=== PATIENT | female | born 1990 | race Caucasian/White ===

== ENCOUNTER 2020-04-15 13:03 | Emergency (ER) | payer SELFPAY ==
[2020-04-15 13:19] VITALS: BP 172/101; PULSE 88; RESP 24; TEMP 36.8; O2SAT 100; BMI 42.0
--- NOTE | 2020-04-15 13:40 | XRR_ITS ---
PROCEDURE INFORMATION: Exam: XR Right Ankle Exam date and time: 04/15/2020 2:05 PM Age: 29 years old Clinical indication: Injury or trauma; Fall; Initial encounter; Blunt trauma; Ankle; Right TECHNIQUE: Imaging protocol: XR Right ankle. Views: 3 or more views. COMPARISON: No relevant prior studies available. FINDINGS: Bones/joints: There is a comminuted fracture of the distal right fibula. There is also a fracture of the posterior malleolus. There is widening at the tibiotalar joint with the tibia displaced medially and anteriorly relative to the talus. There is widening between the distal fibula and tibia suggestive of injury to the syndesmosis. Soft tissues: There is soft tissue swelling especially along the medial malleolus. XR/XR ankle RT min 3V* [id number] IMPRESSION: There is fracture dislocation of the right ankle.
--- NOTE | 2020-04-15 13:55 | ED_ITS ---
Documented by User: KAVITA Garcia 04/16/20 07:04 HPI - Extremity Problem General: Chief complaint: Extremity Injury, Lower Stated complaint: fell/ ankle pain Time Seen by Provider: 04/15/20 13:39 History of Present Illness: HPI Narrative: She states she was skiing in her garage today and twisted her ankle on the skates and now she has pain above her right ankle MD Complaint: extremity pain and joint pain Onset (ago): minute(s) Pain Consistency: constant Location: right and lower extremity Severity scale (1-10): 5 Quality: aching Radiation: proximal Relieving factors: immobilization Exacerbating factors: range of motion Associated symptoms: Reports no associated symptoms; Deny chest pain, fever(s) or rash Review of Systems Const: Denies: fever(s), chills or body aches Eyes: Denies: change in vision or blurry vision ENMT: Denies: throat pain or nasal congestion Card: Denies: chest pain or dyspnea on exertion Resp: Denies: dyspnea, productive cough or non-productive cough GI: Denies: abdominal pain, nausea or vomiting Musc: Reports: extremity pain (Right ankle area), joint pain and joint swelling Skin/Breast: Denies: rash Neuro: Denies: headache(s) Psych: Denies: anxiety or depression Cam/Lymph: Denies: easy bruising Physical Exam Const: COMMON NORMALS: no acute distress, average body habitus and patient oriented x3 HENMT: COMMON NORMALS: normocephalic HEAD & SCALP: normal to inspection and normocephalic FACE & SINUS: normal facial exam Eye: COMMON NORMALS: conjunctivae normal GENERAL EYE: appearance normal, both eyes and all related structures CONJUNCTIVA: Yes conjunctivae normal Neck/C-Spine: COMMON NORMALS: no JVD Chest: COMMONS NORMALS: normal inspection of the chest Resp: COMMON NORMALS: normal respiratory effort and clear to auscultation bilaterally AUSCULTATION: clear to auscultation bilaterally Cardio: COMMON NORMALS: no JVD, regular rate and regular rhythm RATE: regular rate RHYTHM: regular rhythm GI: COMMON NORMALS: Normal to inspection, nondistended, normoactive bowel sounds present Extremity: RIGHT LOWER EXTREMITY: Yes foot & digits (Swelling tenderness above the right ankle to anterior aspect slightly to the lateral aspect also limited range of motion due to pain) Neuro: COMMON NORMALS: patient oriented x3 Course Vital Signs: Vital signs: Vital Signs Temperature 98 F 04/15/20 15:20 Pulse Rate 99 04/15/20 15:23 Respiratory Rate 16 04/15/20 15:23 Blood Pressure 149/93 04/15/20 15:23 Pulse Oximetry 97 04/15/20 15:23 MDM - Extremity (Nontraumatic) Lab Data: Labs: Lab Results 04/15/20 Range/Units 15:47 Nasal/Oral COVID-1 9 PCR Negative Discharge Plan Discharge Patient Disposition: Home Clinical Impression: Fracture of distal end of right fibula, Fracture dislocation of ankle Condition: Stable Prescriptions: New hydrocodone-acetaminophen 5-325 mg tablet 1 tab PO Q6H PRN (Reason: pain) Qty: 15 RF: 0 Zofran 4 mg tablet 4 mg PO Q6H PRN (Reason: nausea and vomiting) Qty: 12 RF: 0 No Action Sprintec (28) 0.25-35 mg-mcg tablet 1 tab PO DAILY RF: 0 Benadryl Allergy 25 mg Tablet 25 mg PO Q6H PRN (Reason: ALLERGIES) RF: 0 Ventolin HFA 90 mcg/actuation HFA aerosol inhaler 2 puff INHALATION Q4H PRN (Reason: UNKNOWN) RF: 0 Discharge Orders: Discharge Order (Routine); Ordered 04/15/20 Ordered By: Dilan Valdes Discharge Diet: Usual diet Discharge Activity: Limit activity as instructed Activity Restrictions/Additional Instructions: Nonweightbearing on the right ankle crutches for ambulation. 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 Exam Comprehensive Documented by User: Dilan Valdes DO 04/19/20 09:33 HPI - Extremity Problem General: Chief complaint: Extremity Injury, Lower Stated complaint: fell/ ankle pain Time Seen by Provider: 04/15/20 13:39 Procedures Orthopedic Fracture Reduction Fracture #1: Time Out Performed: Yes Side: right Fracture Reduction Location: tibia and fibula Analgesia: procedural sedation Technique: direct manipulation Post Reduction X-rays Demonstrate: anatomical reduction Post-reduction neuro exam: intact Post-reduction vascular exam: intact Splint Applied: Yes Patient Tolerated Procedure: well Procedural Sedation Indication: fracture/dislocation reduction Preparation: campus monitor applied, pulse oximeter, supplemental O2 applied, suction/airway equipment at bedside and IV secured IV Etomidate dose (mg): 10 Patient Tolerated Procedure: well Complications: none Course Vital Signs: Vital signs: Vital Signs Temperature 98 F 04/15/20 15:20 Pulse Rate 99 04/15/20 15:23 Respiratory Rate 16 04/15/20 15:23 Blood Pressure 149/93 04/15/20 15:23 Pulse Oximetry 97 04/15/20 15:23 MDM - Extremity (Nontraumatic) MDM Narrative: Medical decision making narrative: Fracture reduced without difficulty and splint applied. Patient recovered well and discharged home with crutches and the splint. Patient given pain medications. Will make referral to orthopedics for definitive care at a later date. COVID swab done while she was in the emergency room. Lab Data: Labs: Lab Results 04/15/20 Range/Units 15:47 Nasal/Oral COVID-1 9 PCR Negative Discharge Plan Discharge Patient Disposition: Home Clinical Impression: Fracture of distal end of right fibula, Fracture dislocation of ankle Condition: Stable Prescriptions: New hydrocodone-acetaminophen 5-325 mg tablet 1 tab PO Q6H PRN (Reason: pain) Qty: 15 RF: 0 Zofran 4 mg tablet 4 mg PO Q6H PRN (Reason: nausea and vomiting) Qty: 12 RF: 0 No Action Sprintec (28) 0.25-35 mg-mcg tablet 1 tab PO DAILY RF: 0 Benadryl Allergy 25 mg Tablet 25 mg PO Q6H PRN (Reason: ALLERGIES) RF: 0 Ventolin HFA 90 mcg/actuation HFA aerosol inhaler 2 puff INHALATION Q4H PRN (Reason: UNKNOWN) RF: 0 Discharge Orders: Discharge Order (Routine); Ordered 04/15/20 Ordered By: Dilan Valdes Discharge Diet: Usual diet Discharge Activity: Limit activity as instructed Activity Restrictions/Additional Instructions: Nonweightbearing on the right ankle crutches for ambulation. Case management will call with follow-up appointment with orthopedics Discharge Date/Time: 04/15/20 15:53 Coding Level of Care Code ED [employer] Drilling Machine Operator for Abe Fwd Exam Comprehensive
[2020-04-15] MEDS: sodium chloride 0.9% 1,000 ML 125 ML IV (15:07)
[2020-04-15] MEDS: ondansetron 2 mg/ML SDV 2 mL 4 MG IVP (15:07)
[2020-04-15] MEDS: morphine 4 mg/mL SDV 1 mL IVP (15:07)
[2020-04-15 15:08] VITALS: BP 147/93; PULSE 95; RESP 14; O2SAT 96
--- NOTE | 2020-04-15 15:08 | XRR_ITS ---
PROCEDURE INFORMATION: Exam: XR Right Ankle Exam date and time: 04/15/2020 3:25 PM Age: 29 years old Clinical indication: Abnormal findings; Abnormal imaging study; Right ankle; Additional info: Post reduction film TECHNIQUE: Imaging protocol: XR Right ankle. Views: 1 or 2 views. COMPARISON: CR XR ankle RT min 3V* [id number] 04/15/2020 1:59 PM FINDINGS: Bones/joints: There are fractures of the distal right fibula and also of the posterior malleolus which have improved in alignment in the interval. There has also been improvement in alignment at the tibiotalar joint. Soft tissues: There is soft tissue swelling along the medial and lateral malleolus. XR/XR ankle RT 2V [id number] IMPRESSION: Alignment of the fractures have improved in the interval.
[2020-04-15 15:17] VITALS: RESP 15; O2SAT 98
[2020-04-15] MEDS: fentaNYL 50 mcg/mL INJ 2mL 25 MCG IVP (15:17)
[2020-04-15 15:20] VITALS: BP 115/78; PULSE 70; RESP 15; TEMP 36.6; O2SAT 99
[2020-04-15 15:23] VITALS: BP 149/93; PULSE 99; RESP 16; O2SAT 97
[2020-04-16 22:37] LABS: Coronavirus Lab Test PTC Negative
--- NOTE | 2020-04-17 08:39 | PC.NURSE ---
Pt notified of negative COVID result.
--- NOTE | 2020-04-17 09:32 | DCPLANNER ---
manager analysis had message to schedule a follow up appointment for patient with ortho. manager analysis called the ortho clinic, spoke with Pat, gave clinic patients information. manager analysis was told that patients information would be printed and reviewed. Clinic will call patient with appointment information.
--- NOTE | 2020-04-18 09:38 | DCPLANNER ---
Patient has a follow up appointment for patient with ortho scheduled for Tuesday, April 18, [address] at 9:[address] Quinones. Clinic will call patient with appointment information.
--- NOTE | 2020-04-29 15:37 | DCPLANNER ---
Patient has a follow up appointment scheduled for 04.18.20 with ortho - patient did attend appointment.
== END 2020-04-15 15:53 | disposition home or self-care (01) ==
PROVIDERS: Nurse Practitioner Family; Emergency Provider Family Medicine
DX: S82.451A Displaced comminuted fracture of shaft of right fibula, initial encounter for closed fracture (principal); X50.1XXA Overexertion from prolonged static or awkward postures, initial encounter
CPT/HCPCS: 12345; 29125; 73600; 73610; 87635; 96374; 96375; 99282; 99283; E0114; J2270; J2405; J3010; J3490; J7030

== ENCOUNTER 2020-04-21 05:49 | Day surgery (SDC) | payer MEDICAID, SELFPAY ==
[2020-04-20 09:46] VITALS: BMI 45.4
[2020-04-21] VITALS (12 sets, daily range): BP systolic 90–143; BP diastolic 71–98; PULSE 86–107; RESP 16–24; TEMP 36.1–36.6; O2SAT 96–99
--- NOTE | 2020-04-21 | XR_ITS ---
WS: [id number] C-ARM RADIOGRAPHS RIGHT ANKLE; 4 IMAGES HISTORY: OR PICS COMPARISON: 04/15/2020 Intraoperative imaging during plate and screw fixation distal fibular fracture and syndesmosis screw/ button placement. Fracture in normal alignment. XR/XR ankle RT min 3V* [id number] IMPRESSION: Intraoperative fixation distal fibular fracture with syndesmosis fixation.
--- NOTE | 2020-04-21 | SCC_ITS ---
Procedure Done: Open reduction internal fixation lateral and posterior malleolus open treatment syndesmotic injury 57.6 seconds of fluoroscopic guidance, for a cumulative dose of 2.03 mGy, was provided to Dr. Quinones by the radiology department. C-arm images of the RIGHT ankle were saved for the patient's permanent record. [facility]
[2020-04-21 06:30] LABS: OR HCG Qualitative Urine Negative (Negative)
[2020-04-21] MEDS: sodium chloride 0.9% 1,000 ML 30 ML IV (06:33)
--- NOTE | 2020-04-21 06:45 | ANES.PREANE2 ---
Pre-Anesthetic Assessment Pre-Anesthetic Assessment: Height/Weight: Height 1.63 m Weight 120.202 kg Temp Pulse Resp BP Pulse Ox 97.0 F L 107 H 20 H 141/84 96 04/21/20 06:24 04/21/20 06:24 04/21/20 06:24 04/21/20 06:24 04/21/20 06:24 Preop Diagnosis: Right bimalleolar ankle fracture with syndesmotic injury Proposed Procedure: Operation Date: 04/21/20 07:00 Proposed Procedures p ORIF Ankle 79508 S82.841A(Right) - Kamaljit Quinones MD Familial anesthetic complications: none Last intake: Intake Last Liquid Date 04/20/20 Last Liquid Time 22:00 Last Solid Date 04/20/20 Last Solid Time 20:00 Social: Social History: No alcohol and No tobacco Exam: Pre-Anes Outpt Exam: alert, oriented x 3, clear to auscultation bilaterally and regular rate & rhythm Airway: Cervical ROM: WNL MP: 3 Dentition: Other (missing teeth) Pulmonary: Pulmonary: Asthma Metabolic: Metabolic: Morbid obesity Anesthetic Plan: ASA status: 2 Anesthesia: General and Regional (specify below) Risk of > 500 ml blood loss (7ml/kg in children): No Meds/Allergies Current Medications: Current Medications Generic Name Dose Route Start Last Admin Trade Name Freq PRN Reason Stop Dose Admin Sodium Chloride 1,000 mls @ 30 ml s/hr 04/21/20 06:15 04/21/20 06:33 Sodium Chloride 0.9% IV 04/22/20 06:14 30 mls/hr .Q24H NADJA Administration PFSH Anesthesia Female Reproductive History: Date of last menstrual period: 04/24/19 Data Anesthesia Other Labs: Laboratory Results - last 48 hr 04/21/20 06:11 Urine HCG, Qual Negative Cardiac Studies: No Data to Display
[2020-04-21] MEDS: midazolam 1 mg/mL INJ 2 mL 2 MG IVP (06:50)
--- NOTE | 2020-04-21 07:01 | W.PM.OPSUD ---
Surgery/Procedure H&P Update DATE OF PROCEDURE: April 21, 2020 DATE H&P PERFORMED: 04/18/20 PREOP DIAGNOSIS: Right bimalleolar ankle fracture with syndesmotic injury PLANNED PROCEDURE: Operation Date: 04/21/20 07:00 Proposed Procedures p ORIF Ankle 30451 S82.841A(Right) - Kamaljit Quinones MD
--- NOTE | 2020-04-21 07:05 | ANES.PROC ---
Anesthesia Procedures Procedure/Date: 04/21/20 Nerve Block ^: Nerve Block 1: Main Anesthesia: general anesthesia Time Out Performed: Yes Consent: requested by attending/covering physician, from patient, risks and benefits reviewed and patient agrees to proceed Nerve block location: popliteal (R) Anesthesia monitors applied: pulse oximetry, EKG, BP cuff and oxygen Nerve block position: supine Anesthetic Used: ropivicaine 0.5% and with decadron (4 mg) Amount of anesthesia used (mL): 30 Ultrasound used to: recognize landmarks Nerve Stimulator Used?: No Interscalene/Femoral BLK: 4 stimuplex 21 g needle used for position and inplane approach, visualize local anesthetic spread and no vascular puncture identified Injection: neg aspiration of heme Patient Tolerated Procedure: well Complications: none
--- NOTE | 2020-04-21 08:51 | PM.OP ---
Operative Report Date of procedure: April 21, 2020 Pre-op Diagnosis: Right bimalleolar ankle fracture with syndesmotic injury Post-op diagnosis: same Post-op Findings: The patient had a segmental fracture of her right fibula consisting of a high spiral component and a lower transverse nondisplaced component. There is a posterior malleolar fracture and lateral shift of the talus in the mortise Procedure Done: Open reduction internal fixation lateral and posterior malleolus open treatment syndesmotic injury Implants: [place] [employer] Residencess 12 hole semitubular plate, Arthrex tight rope Pathology: none sent Surgeon: Kamaljit Quinones Anesthesia: General and Nerve Block Estimated blood loss (mL): 25 Tourniquet time (min): 63 Complications: None Findings: ure of her right fibula consisting of a high spiral component and a lower transverse nondisplaced component. There is a posterior malleolar fracture and lateral shift of the talus in the mortise Condition: stable Disposition: PACU Procedure: Patient was given a regional block by anesthesia and outpatient. The patient was taken to the operating room and given 2 g of Ancef. She was given a general endotracheal anesthesia. He was prepped and draped in the lateral position with the right leg exposed. A timeout was performed. A tourniquet was inflated to 350 mmHg due to the size of her leg. A 15 cm long incision was made from the tip of the fibula proximally along the posterior edge of the fibula and dissection carried down to the fibula and lateral malleolus. Initial attention was focused to the displaced spiral fracture of the fibula. Utilizing 2 reduction clamps this was brought to length and provisionally held with a single compression screw. A 12 hole plate was then contoured to fit about the posterior lateral femur. Displaced L4 holes distal to the most distal transverse fracture line and 4 holes proximally. The plate was secured with 3 screw holes in the most distal fragment, 3 in the central fragment, and 4 screw holes in the most proximal fragment. Dissection was then carried down behind the peroneal tendons to the posterior malleolus. With the foot in a dorsiflexed position and gravity reducing the ankle medially a partially-threaded cannulated cancellous screw and washer were placed reducing the small posterior malleolar fragment. The C-arm was then rotated obtain a mortise view. Through the second most distal screw guidepin and a cannulated reamer for the Arthrex tight rope were passed. The tight rope was passed without difficulty and secured laterally. Preoperative imaging showed the talus aligned in the mortise in anatomic reduction of the fractures about the ankle. The wound was irrigated saline. Deep tissues were closed with 0 Vicryl, subcutaneous tissues with 2-0 Vicryl, the skin with skin sabino. Sterile dressings were applied. The patient was extubated and taken to recovery in stable condition in a postop boot.
--- NOTE | 2020-04-21 09:01 | SUR.PHASEI ---
0856 PT TO PACU SLEEPY OPENS EYES TO VOICE BUT DOES NOT AWAKE, VSS, DRESSING TO RT ANKLE D/I BOOT IN PLACE DISTAL TOES PINK WARM CAP REFILL LESS THAN 3 SECONDS. 0905 PT AWAKE ON RA NOW, PT VERBALLY RESPONDS TO PAIN QUESTION , ( IT FEELS FUNNY) PT REMINDED OF BLOCK TO RT FOOT, VSS.
[2020-04-21] MEDS: fentaNYL 50 mcg/mL INJ 2mL IVP (09:12)
--- NOTE | 2020-04-21 09:17 | SUR.PHASEI ---
0912 PT SHIVERING WARM BLANKETS X 2 TO PT PT NOW C/O OF PAIN TO RT ANKLE SEE MED GIVEN RT FOOT ELEVATED PER BED DRESSING D/I.
[2020-04-21] MEDS: oxyCODONE-APAP 5-325 mg Tablet 1 TAB PO (09:48)
--- NOTE | 2020-04-21 10:12 | ANE.PACU2 ---
Inpatient post-anesthesia follow up: Airway intact: Yes Vital signs: Temperature 97 F Pulse Rate 93 Respiratory Rate 18 Blood Pressure 90/71 Pulse Oximetry 98 Oxygen Delivery Me thod Room Air Oxygen Flow Rate 8 Fraction of Inspir ed Oxygen Hydration adequate: Yes Nausea and vomiting: No Pain level: 5 Mental status: Baseline
== END 2020-04-21 10:27 | disposition home or self-care (01) ==
PROVIDERS: Anesthesiology; Visit Provider Orthopaedic Surgery
PROC: (CPT 27814; principal; 2020-04-21 07:00)
DX: S82.841A Displaced bimalleolar fracture of right lower leg, initial encounter for closed fracture (principal); W19.XXXA Unspecified fall, initial encounter; Y93.51 Activity, roller skating (inline) and skateboarding; Y92.008 Other place in unspecified non-institutional (private) residence as the place of occurrence of the external cause; J45.909 Unspecified asthma, uncomplicated; E66.01 Morbid (severe) obesity due to excess calories; Z68.42 Body mass index [BMI] 45.0-49.9, adult
CPT/HCPCS: 27814; 12345; 73610; 76000; 81025; 84703; 96374; C1713; J0690; J1100; J1580; J2250; J2704; J2795; J3010; J3490; J7030

== ENCOUNTER → 2020-05-27 11:21 | Outpatient (BNVA) | payer MEDICAID, SELFPAY | PROVIDERS: Visit Provider Orthopaedic Surgery | DX: S82.841A Displaced bimalleolar fracture of right lower leg, initial encounter for closed fracture (principal); S93.439A Sprain of tibiofibular ligament of unspecified ankle, initial encounter; X58.XXXA Exposure to other specified factors, initial encounter | CPT/HCPCS: 73610 ==

== ENCOUNTER → 2020-06-24 11:32 | Outpatient (BNVA) | payer MEDICAID, SELFPAY | PROVIDERS: Visit Provider Orthopaedic Surgery | DX: Z47.89 Encounter for other orthopedic aftercare (principal); S82.841D Displaced bimalleolar fracture of right lower leg, subsequent encounter for closed fracture with routine healing; S93.439D Sprain of tibiofibular ligament of unspecified ankle, subsequent encounter; X58.XXXD Exposure to other specified factors, subsequent encounter | CPT/HCPCS: 73610 ==

== ENCOUNTER → 2020-07-22 11:39 | Outpatient (BNVA) | payer MEDICAID, SELFPAY | PROVIDERS: Visit Provider Orthopaedic Surgery | DX: Z47.89 Encounter for other orthopedic aftercare (principal); S82.841D Displaced bimalleolar fracture of right lower leg, subsequent encounter for closed fracture with routine healing; S93.431D Sprain of tibiofibular ligament of right ankle, subsequent encounter; X50.1XXD Overexertion from prolonged static or awkward postures, subsequent encounter | CPT/HCPCS: 73610 ==

== ENCOUNTER → 2021-05-26 09:07 | Outpatient (BNVA) | payer MEDICAID, SELFPAY | PROVIDERS: Visit Provider Nurse Practitioner Women's Health | DX: N92.6 Irregular menstruation, unspecified (principal); N64.52 Nipple discharge | CPT/HCPCS: 84146; 84702; 87624 ==

== ENCOUNTER → 2021-06-23 16:15 | Outpatient (BNVA) | payer BC, MEDICAID, SELFPAY | PROVIDERS: Visit Provider Nurse Practitioner Women's Health | DX: N92.6 Irregular menstruation, unspecified (principal) | CPT/HCPCS: 76830; 81025 ==

== ENCOUNTER → 2023-02-08 16:14 | Outpatient (BNVA) | payer MEDICAID, SELFPAY | PROVIDERS: PCP Family Medicine; Visit Provider Family Medicine | DX: J45.909 Unspecified asthma, uncomplicated (principal); E66.9 Obesity, unspecified; Z68.43 Body mass index [BMI] 50.0-59.9, adult | CPT/HCPCS: 80053; 80061; 83036; 84439; 84443; 85025 ==

== ENCOUNTER → 2024-01-23 11:50 | Outpatient (BNVA) | payer MEDICAID, OTHER, SELFPAY | PROVIDERS: PCP Family Medicine; Visit Provider Family Medicine | DX: E55.9 Vitamin D deficiency, unspecified (principal); F33.2 Major depressive disorder, recurrent severe without psychotic features; F41.1 Generalized anxiety disorder; G47.00 Insomnia, unspecified; J45.40 Moderate persistent asthma, uncomplicated; M25.571 Pain in right ankle and joints of right foot | CPT/HCPCS: 80053; 80061; 82306; 84443; 85025 ==